=== PATIENT | male | born 1950 | race Caucasian/White ===

== ENCOUNTER 2022-09-05 08:39 | Inpatient (IN) ==
[2022-09-05] MEDS ORDERED: HYDROmorphone INJ 1 MG/ML SYRINGE IV STA (09:14)
--- NOTE | 2022-09-05 09:18 | History & Physical Report ---
Date of Service September 05, 2022 Assessment & Plan (1) Acute appendicitis: Plan: Postoperative day #2. Suspect patient has a postoperative ileus. The laxatives probably compounded the symptoms. We will obtain a KUB to verify. He will likely need an NG tube and IV fluids. We will admit the patient for observation. We will also check lab work. Acute appendicitis type: unspecified acute appendicitis type Qualified Code(s): K35.80 - Unspecified acute appendicitis History of Present Illness Primary Care Provider: NO PCP 71-year-old male who is postoperative day 2 from laparoscopic appendectomy by myself over the weekend. He came in because of severe abdominal cramping abdominal distention mild nausea. He is unable to pass flatus or have a bowel movement. He did take multiple navo-wzo-wvvmdec laxatives which seems to have only made things worse. No emesis. He states he has no pain in the right lower quadrant or at the surgical sites. He denies any fevers. Allergies Allergy/AdvReac Type Severity Reaction Status Date / Time No Known Allergies Allergy Verified 09/03/22 10:06 Home Medications Medication Instructions Recorded Confirmed Type aspirin 81 mg tablet,delayed 81 mg PO DAILY 09/03/22 09/03/22 History release atorvastatin 40 mg tablet 40 mg PO QPM 09/03/22 09/03/22 History cyanocobalamin (vitamin B-12) 1,000 mcg PO DAILY 09/03/22 09/03/22 History 1,000 mcg tablet (Vitamin B-12) fexofenadine 180 mg tablet 180 mg PO DAILY 09/03/22 09/03/22 History levalbuterol tartrate 45 2 puff inhalation QID PRN 09/03/22 09/03/22 History mcg/actuation aerosol inhaler Shortness Of Breath magnesium 250 mg tablet 250 mg PO DAILY 09/03/22 09/03/22 History metoprolol succinate 50 mg 75 mg PO QAM 09/03/22 09/03/22 History tablet,extended release 24 hr montelukast 10 mg tablet 10 mg PO QPM 09/03/22 09/03/22 History multivitamin 1 tab PO QAM 09/03/22 09/03/22 History oxycodone-acetaminophen 5 mg-325 1 - 2 tab PO .q4-6h PRN pain, for 02/25/23 Rx mg tablet (Percocet) initial therapy, max 6 tabs per day #15 tabs Past Med/Surg History Medical History HLD (hyperlipidemia) HTN (hypertension) Surgical History H/O prostatectomy Hx of inguinal hernia surgery Social History Feels Safe at Home: Yes Review of Systems All systems reviewed & are unremarkable except as noted in HPI & below Physical Exam Physical Exam: Alert. In mild to moderate distress secondary to abdominal discomfort Constitutional: Alert. Mild distress secondary to abdominal discomfort which appears to come in waves. Eyes: PERRL, conjunctivae normal, anicteric sclerae EOM intact bilaterally ENMT: external ear and nose normal, oropharynx normal Ears: no hearing impairment Neck: trachea midline, no thyromegaly Respiratory: normal respiratory effort; no respiratory distress and does not use accessory muscles Cardiovascular: Rate/Rhythm: regular rate and regular rhythm Gastrointestinal (Abdomen): Soft. Distended. Mild erythema at the umbilical incision. All the incisions are intact. No peritoneal signs. Skin: no rashes, warm and dry Psychiatric: Orientation: alert, oriented x 3 and cooperative Results & Data ([facility]) Vital Signs (Past 12 Hours) Vital Signs Temp Pulse Resp BP Pulse Ox O2 Del Method 09/05/22 08:44 36.8 C 69 18 160/88 H 97 Room Air
--- NOTE | 2022-09-05 09:44 | XRay Report ---
XR KUB/Abdomen 1 view CLINICAL HISTORY: abdominal pain TECHNIQUE: 1 view of the abdomen was obtained. Comparison: Comparison is made to chest and abdomen radiographs 11/12/[address] abdomen pelvis 023 FINDINGS: Lung bases are unremarkable. Degenerative changes are seen in the visualized skeleton. Numerous dilat ed loops of small bowel are seen measuring up to 37 mm. A moderate amount of stool is noted within th e large bowel. IMPRESSION: Numerous dilated loops of small bowel are seen which may represent postsurgical ileus in this patient with recent appendicitis. Developing partial obstruction cannot be entirely excluded either. ACT 112: Negative or not required by law. Electronically signed by: Juan Rojo M.D. 09/05/2022 9:43 AM
[2022-09-05 10:26] LABS: Basophils # (auto) 0.03 K/uL (0-0.2); Basophils % (auto) 0.4 %; Eosinophils # (auto) 0.03 K/uL (0-0.50); Eosinophils % (auto) 0.4 %; Hematocrit (blood only) 40.1 % (42.0-52.0); Immature Granulocytes # (auto) 0.02 K/uL (0.01-0.20); Immature Granulocytes % (auto) 0.3 %; Lymphocytes # (auto) 0.83 K/uL (1.2-3.4); Lymphocytes % (auto) 12.3 %; Mean Corpuscular Hemoglobin 32.4 pg (25.0-34.0); Mean Corpuscular Hgb Conc 34.9 g/dL (32.0-36.0); Mean Corpuscular Volume 92.8 fL (80.0-100.0); Mean Platelet Volume 9.8 fL (9.4-12.4); Monocytes # (auto) 0.51 K/uL (0.11-0.59); Monocytes % (auto) 7.6 %; Neutrophils # (auto) 5.32 K/uL (1.40-6.50); Platelet Count 238 K/uL (130-400); RDW Standard Deviation 41.1 fL (36.4-46.3); Red Blood Count 4.32 M/uL (4.70-6.10); White Blood Count 6.74 K/ul (4.8-10.8)
[2022-09-05 10:36] LABS: BUN Creatinine Ratio 17.1 (10-20); Calcium 9.5 mg/dl (8.5-10.1); Creatinine Clr Calc Pharmacy 84.1 ml/min; Est GFR (African American) 102.4 ml/min; Est GFR (Non-African American) 88.3 ml/min; Potassium 3.7 mmol/L (3.5-5.1)
[2022-09-05] MEDS ORDERED: OPTIRAY 350 100ml IV ONE (11:20)
[2022-09-05] MEDS ORDERED: ONDANSETRON INJ 2 MG/ML 2 ML VIAL IV PRN ×2 (11:52→13:12)
--- NOTE | 2022-09-05 11:55 | CT Scan Report ---
ABDOMEN AND PELVIS CT WITH IV CONTRAST CT DOSE: 624.98 mGycm HISTORY: Status post appendectomy. Diffuse abdominal pain with distention. TECHNIQUE: Multiaxial CT images of the abdomen and pelvis were performed following the use of intrave nous contrast. A dose lowering technique was utilized adhering to the principles of ALARA. COMPARISON STUDY: Abdomen and pelvis CT 09/03/2022. FINDINGS: Bibasilar linear densities consistent with subsegmental atelectasis. No acute fractures tanna ntified. Mild subcutaneous edema and a few punctate foci of gas within the left-sided abdominal wall favors postoperative change. Small subcutaneous hematomas at the expected port sites which measure up to 1.5 cm within the abdominal wall. These also likely represent the recent postoperative change. Th ere is a tiny fat-containing left inguinal hernia. The liver, gallbladder, pancreas, spleen, adrenal glands unremarkable. No hydronephrosis. Stable bilateral renal hypodense lesions. Dominant lesion wit hin the lower pole of the right kidney measures 5 cm. This demonstrates a small amount of calcificati on along the posterior wall. These favor cysts. No retroperitoneal lymphadenopathy. Mild calcified pl aque within the normal caliber abdominal aorta. The main portal vein is patent. The bladder is unrema rkable. Small amount of pelvic and perihepatic fluid is noted. There are few small scattered foci of gas within the abdomen and at the appendectomy site which is likely due to the recent postoperative c hange. There are multiple dilated gas and fluid-filled loops of large and small bowel seen throughout the abdomen. No definite transition point to suggest a bowel obstruction. Therefore, this favors a p ostoperative ileus. There is a 3.6 cm hematoma at the appendectomy site best seen on image 256. IMPRESSION: 1. Multiple dilated gas and fluid-filled loops of large and small bowel seen throughout the abdomen. No definite transition point identified. Therefore, this favors a postoperative ileus rather than an obstruction. 2. Status post appendectomy. There is a 3.6 cm hematoma at the appendectomy site. 3. Small amount of free fluid and a few scattered punctate foci of pneumoperitoneum. This favors post operative changes given the recent appendectomy. 4. Additional findings as described above. ACT 112: Negative or not required by law. Electronically signed by: Liban Mckeon M.D. 09/05/2022 11:53 AM
[2022-09-05] MEDS ORDERED: HYDROmorphone INJ 0.5 MG/0.5 ML SYR IV PRN ×2 (13:12→15:06)
[2022-09-05] MEDS: LACTATED RINGER'S 1,000 ML IV SCH (13:41)
--- NOTE | 2022-09-05 14:52 | XRay Report ---
XR KUB/Abdomen 1 view CLINICAL HISTORY: eval NGT placement TECHNIQUE: 1 view of the abdomen was obtained. Comparison: Comparison is made to abdomen radiograph 09/05/2022 FINDINGS: Enteric tube terminates in the stomach. The side-port is at the level of the gastroesophageal junctio n. The osseous structures are grossly unremarkable. Normal gas dilated loops of small bowel are again seen. Small stool burden is seen. IMPRESSION: 1. Enteric tube side-port is at the level of the gastroesophageal junction. It can be advanced appro ximately 5 cm for improved positioning. 2. Redemonstration of numerous enlarged small bowel loops compatible with ileus. ACT 112: Negative or not required by law. Electronically signed by: Juan Rojo M.D. 09/05/2022 2:50 PM
[2022-09-05] MEDS: ACETAMINOPHEN 1,000 MG/100 ML VIAL IV PRN (17:55)
--- NOTE | 2022-09-05 20:52 | Communication Note ---
Date of Service: September 05, 2022 This is a 71-year-old male who underwent an appendectomy by Dr. Oquendo on 09/03/2022. The patient was able to be discharged home the same day as his s urgery. The patient was readmitted to [facility] on 09/05/2022 due to concerns for ileus. Due to the concern for ileus the patient an NG tube placed. It was noted that patient had some bloody drainage from his nares following the NG tube placement. I visited with the patient at bedside shortly after 7:00 PM this evening. The patient was noted to be resting in bed and he was comfortable. There was some old dried blood within the NG tube but he did not appear to be actively bleeding. The patient did note some discomfort from the NG tube but notes that overall his abdominal complaints have improved since placement of the NG tube. We will continue to monitor with NG tube in place and likely remove the patient's NG tube and slowly advance his diet once he has improvement of his abdominal exam and further return of bowel function.
[2022-09-05] MEDS ORDERED: CHLORASEPTIC 1.4% SOLN 180 ML BTL PO PRN (23:10)
[2022-09-06] MEDS: LACTATED RINGER'S 1,000 ML IV SCH ×3 (00:51→21:16)
[2022-09-06] MEDS: METOPROLOL SUCC 25MG EXT REL TAB PO SCH (07:34)
[2022-09-06 08:00] LABS: Basophils # (auto) 0.03 K/uL (0-0.2); Basophils % (auto) 0.5 %; Eosinophils # (auto) 0.02 K/uL (0-0.50); Eosinophils % (auto) 0.3 %; Hematocrit (blood only) 36.4 % (42.0-52.0); Hemoglobin 12.8 g/dl (14.0-18.0); Immature Granulocytes # (auto) 0.02 K/uL (0.01-0.20); Immature Granulocytes % (auto) 0.3 %; Lymphocytes # (auto) 0.84 K/uL (1.2-3.4); Lymphocytes % (auto) 13.2 %; Mean Corpuscular Hemoglobin 32.2 pg (25.0-34.0); Mean Corpuscular Hgb Conc 35.2 g/dL (32.0-36.0); Mean Corpuscular Volume 91.5 fL (80.0-100.0); Mean Platelet Volume 9.4 fL (9.4-12.4); Monocytes # (auto) 0.43 K/uL (0.11-0.59); Monocytes % (auto) 6.8 %; Neutrophils % (auto) 78.9 %; Platelet Count 215 K/uL (130-400); RDW Coefficient of Variation 11.8 % (11.5-14.5); RDW Standard Deviation 39.3 fL (36.4-46.3); Red Blood Count 3.98 M/uL (4.70-6.10); White Blood Count 6.34 K/ul (4.8-10.8)
[2022-09-06 08:05] LABS: BUN Creatinine Ratio 20.7 (10-20); Creatinine Clr Calc Pharmacy 79.2 ml/min; Est GFR (African American) 99.9 ml/min; Est GFR (Non-African American) 86.2 ml/min; Potassium 3.6 mmol/L (3.5-5.1)
--- NOTE | 2022-09-06 09:58 | XRay Report ---
KUB HISTORY: Small bowel destruction. Ileus. COMPARISON: KUB 09/05/2022. FINDINGS: Dilated gas-filled loops of large and small bowel are again seen throughout the abdomen. Na sogastric tube terminates in the proximal stomach. Trace pneumoperitoneum again noted suggestive of p ostoperative change. No renal calculi. No ureteral calculi. Suture material within the right lower q uadrant consistent with a prior appendectomy. IMPRESSION: 1. No change in the dilated gas-filled loops of large and small bowel seen throughout the abdomen. Th is favors a postoperative ileus. 2. Nasogastric tube terminates in the proximal stomach. 3. Trace pneumoperitoneum, unchanged. This favors postoperative changes. ACT 112: Negative or not required by law. Electronically signed by: Liban Mckeon M.D. 09/06/2022 9:56 AM
--- NOTE | 2022-09-06 10:04 | Surgery Progress Note ---
Date of Service September 06, 2022 Assessment & Plan (1) Acute appendicitis: (2) Postoperative ileus: Plan: Clinically improving. KUB still shows dilated loops of bowel so we will advance the NG tube and keep it in place. Repeat KUB tomorrow. Admission and Anticipated Discharge Date Admission Date: September 05, 2022 Subjective Patient seen. Feeling much better. He did have a bowel movement as well as a fair amount of flatus. His pain has dramatically improved. Physical Exam Physical Exam: Alert. No acute distress. Appears more comfortable Abdomen is soft. It is distended. It is nontender. His incisions look good Results & Data ([facility]) Vital Signs (Past 12 Hours) Vital Signs Temp Pulse Resp BP Pulse Ox O2 Del Method 09/06/22 07:39 37.3 C 84 16 162/83 H 96 Room Air 09/06/22 00:51 37.4 C 82 19 168/79 H 93 Room Air PG Care Time/CCT Total # of Minutes Spent Total Time Spent with Patient: Total time spent is greater than 50% in coordination of care (as documented) at patient's floor/unit and/or counseling patient: Coding Level of Care Code 15373 Post Operative Follow-Up Diagnoses Acute appendicitis K35.80 Acute appendicitis type: unspecified acute appendicitis type Postoperative ileus K91.89; K56.7 (1) Acute appendicitis Acute appendicitis type: unspecified acute appendicitis type Qualified Code(s): K35.80 - Unspecified acute appendicitis
[2022-09-06] MEDS: ACETAMINOPHEN 1,000 MG/100 ML VIAL IV PRN ×2 (10:54→21:16)
[2022-09-07] MEDS: LACTATED RINGER'S 1,000 ML IV SCH ×2 (06:03→17:18)
[2022-09-07] MEDS: ACETAMINOPHEN 1,000 MG/100 ML VIAL IV PRN (06:36)
[2022-09-07] MEDS: METOPROLOL SUCC 25MG EXT REL TAB PO SCH (07:51)
--- NOTE | 2022-09-07 11:30 | XRay Report ---
KUB CLINICAL HISTORY: sbo/ileus COMPARISON STUDY: CT of the abdomen and pelvis September 05, 2022 KUB September 06, 2022. FINDINGS: Tip of nasogastric tube is within the body of the stomach. The tip is well-positioned. Gase ous distention of small and large bowel has decreased since KUB of September 06, 2022. Small bowel loo ps measure up to 3.1 cm in caliber. IMPRESSION: Interval decrease in small and large bowel dilatation. This favors an ileus. ACT 112: Negative or not required by law. Electronically signed by: Sandoval Perez M.D. 09/07/2022 11:28 AM
--- NOTE | 2022-09-07 11:44 | Surgery Progress Note ---
Date of Service September 07, 2022 Assessment & Plan (1) Postoperative ileus: Plan: Much improved both clinically and radiographically. We will pull his NG tube and initiate clear liquids. If he does well potential discharge tomorrow afternoon. (2) History of laparoscopic appendectomy: Admission and Anticipated Discharge Date Admission Date: September 05, 2022 Subjective Patient seen. Doing well. Continues to have increased flatus. No more pain or nausea. He is quite hungry. Physical Exam Physical Exam: Alert. No acute distress Abdomen is dramatically softer. No distention nontender. Results & Data ([facility]) Vital Signs (Past 12 Hours) Vital Signs Temp Pulse Resp BP Pulse Ox O2 Del Method 09/07/22 07:59 Room Air 09/07/22 07:37 36.7 C 75 18 157/78 H 97 Room Air PG Care Time/CCT Total # of Minutes Spent Total Time Spent with Patient: Total time spent is greater than 50% in coordination of care (as documented) at patient's floor/unit and/or counseling patient: Coding Level of Care Code 24590 Post Operative Follow-Up Diagnoses Postoperative ileus K91.89; K56.7 History of laparoscopic appendectomy Z90.49
[2022-09-08] MEDS: LACTATED RINGER'S 1,000 ML IV SCH ×2 (03:40→14:10)
--- NOTE | 2022-09-08 07:56 | Surgery Progress Note ---
Date of Service September 08, 2022 Assessment & Plan (1) History of laparoscopic appendectomy: Plan: Patient feels well after NGT removal. Continues to pass flatus. Tolerating clear liquids Abdominal distention improved, soft, non tender Will advance diet this AM...if tolerates well may anticipate discharge to home later today (2) Postoperative ileus: Admission and Anticipated Discharge Date Admission Date: September 05, 2022 Subjective Patient is doing well. Denies nausea/vomiting or abdominal pain. Continues to pass flatus, had some small BMs a couple days ago. Physical Exam Physical Exam: awake/alert Respiratory: normal respiratory effort Gastrointestinal (Abdomen): Inspection/Auscultation: + abdomen distended (improved) and + abdominal surgical incision (c/d/i, some ecchymosis noted to lower left abdomen) Percussion/Palpation: abdomen soft; abdomen nontender Results & Data ([facility]) Vital Signs (Past 12 Hours) Vital Signs Temp Pulse Resp BP Pulse Ox O2 Del Method 09/08/22 07:42 36.2 C L 59 L 18 171/80 H 97 Room Air 09/07/22 21:52 36.9 C 61 15 163/77 H 96 Room Air PG Care Time/CCT Total # of Minutes Spent Total Time Spent with Patient: Total time spent is greater than 50% in coordination of care (as documented) at patient's floor/unit and/or counseling patient: Coding Level of Care Code None Diagnoses History of laparoscopic appendectomy Z90.49 Postoperative ileus K91.89; K56.7
[2022-09-08] MEDS: METOPROLOL SUCC 25MG EXT REL TAB PO SCH (09:03)
--- NOTE | 2022-09-09 14:13 | Discharge Summary ---
Date of Service September 08, 2022 Admission HPI Per Admitting Provider 71-year-old male who is postoperative day 2 from laparoscopic appendectomy by myself over the weekend. He came in because of severe abdominal cramping abdominal distention mild nausea. He is unable to pass flatus or have a bowel movement. He did take multiple aukp-hqw-cjzhfmy laxatives which seems to have only made things worse. No emesis. He states he has no pain in the right lower quadrant or at the surgical sites. He denies any fevers. Principal Diagnosis postoperative ileus h/o laparoscopic appendectomy HTN Discharge Exam awake/alert Respiratory normal respiratory effort Gastrointestinal (Abdomen) Inspection/Auscultation: + abdomen distended (improved) and + abdominal surgical incision (c/d/i, some ecchymosis noted to lower left abdomen) Percussion/Palpation: abdomen soft; abdomen nontender Discharge Data Allergies Allergy/AdvReac Type Severity Reaction Status Date / Time No Known Allergies Allergy Verified 09/03/22 10:06 Ordered Studies 09/05/22 10:55 CT abd pelvis IV con only Stat Hospital Course (1) Postoperative ileus: This is a 71yM who is s/p laparoscopic appendectomy on 09/03/22 who was referred to the [facility] ED on 09/05/22 after calling into our office with abdominal distention and no return of bowel function. Workup with a KUB and CT a/p revealed findings concerning for post operative ileus. An NGT was inserted and placed to low intermittent wall suction. He remained NPO with IVF for bowel rest. Over the course of the next couple of days the patient's symptoms improved and he began to pass flatus. On 09/07 his NGT was removed and he was started on a clear liquid diet. He tolerated this well and on 09/08 diet was advanced to low fiber without issues. He denied any abdominal pain/nausea/vomiting and continued to pass flatus. Abdominal distention improved. He was deemed stable for discharge to home on 09/08 with plans to follow up with Dr. Oquendo in clinic within 1-2 weeks for his regularly scheduled post op follow up appointment. (2) History of laparoscopic appendectomy: Total Time Total Time Spent Total Time Spent (In Minutes): 15 Discharge Plan Discharge Items Patient Disposition: Home - Self-Care Reason For Visit: ABDOMINAL PAIN Discharge Diagnosis: abdominal pain history of appendectomy Activity: Per Instructions section Lifting: No more than 10 pounds Bathing Comment: may shower; no soaking in tubs/pools Exercise/Sports: Wait until after follow-up appointment Driving/Machine Use: no driving while taking narcotics for pain Non-emergency contact: Surgeon Call non-emergency contact if: you have any medication questions, your symptoms worsen, your pain is not controlled, your pain is worsening, you have a fever, your temperature is above 101.5, your wound has increased redness, your wound has increased drainage and your wound pain has increased Follow-up/Referrals: Erich Oquendo DO [Surgeon] - 09/19/22 11:45 am Dewey Keenan MD [Primary Care Provider] - 09/20/22 11:00 am Diet: Regular Addtl Attending Provider Instructions: Pending Studies at Discharge: No Stand-Alone Forms: [facility] [employer], Pain - Opioid Pain Management, Smoking Cessation Medications and DC Order Prescriptions: Continued melatonin 5 mg Tablet 5 mg PO HS MDD 5 PRN (Reason: Sleep) multivitamin Tablet 1 tab PO QAM atorvastatin 40 mg tablet 40 mg PO QPM metoprolol succinate [Toprol XL] 50 mg tablet extended release 24 hr 75 mg PO QAM cyanocobalamin (vitamin B-12) [Vitamin B-12] 1,000 mcg Tablet 1,000 mcg PO DAILY fexofenadine [Megan Allergy] 180 mg Tablet 180 mg PO DAILY aspirin 81 mg Tablet,Delayed Release (Dr/Ec) 81 mg PO DAILY montelukast [Singulair] 10 mg tablet 10 mg PO QPM magnesium 250 mg Tablet 250 mg PO DAILY levalbuterol tartrate 45 mcg/actuation HFA aerosol inhaler 2 puff INHALATION QID PRN (Reason: Shortness Of Breath) oxycodone-acetaminophen [Percocet] 5-325 mg tablet 1 - 2 tab PO .q4-6h PRN (Reason: pain, for initial therapy, max 6 tabs per day) Qty: 15 0RF Discharge Orders: Discharge Order (Routine); Ordered 09/08/22 Ordered By: Haydee Cisneros/Other Patient Handouts: Controlling High Blood Pressure Admission Data Admit Date/Time: 09/05/22 10:54 Attending Provider: Erich Oquendo Admit Provider: Erich Oquendo Primary Care Provider: Dewey Keenan Other Interventions: Discharge Summary Assessment (RN) Last Done: 09/08/22 15:27 Coding Level of Care Code 89798 IN/OBS DISCH 30 MIN/LESS Diagnoses Postoperative ileus K91.89; K56.7 History of laparoscopic appendectomy Z90.49
== END 2022-09-08 16:00 | disposition home or self-care (01) | DRG 342 ==
LOC: ED 08:39 → 3N 10:54
DX: I10 Essential (primary) hypertension; K35.80 Unspecified acute appendicitis; Z79.82 Long term (current) use of aspirin; Y83.8 Other surgical procedures as the cause of abnormal reaction of the patient, or of later complication, without mention of misadventure at the time of the procedure; Z79.899 Other long term (current) drug therapy; Y92.009 Unspecified place in unspecified non-institutional (private) residence as the place of occurrence of the external cause; K91.89 Other postprocedural complications and disorders of digestive system; E78.5 Hyperlipidemia, unspecified